=== PATIENT | female | born 1965 | race Caucasian/White ===

== ENCOUNTER → 2023-12-16 09:07 | Outpatient (REF) | payer OTHER, SELFPAY | LOC: WDC 09:07 | PROVIDERS: ATTENDING PHYSICIAN Obstetrics & Gynecology; FAMILY PHYSICIAN Student in an Organized Health Care Education/Training Program | DX: Z12.31 Encounter for screening mammogram for malignant neoplasm of breast (principal) | CPT/HCPCS: 77063; 77067 ==

== ENCOUNTER → 2024-04-16 15:18 | Outpatient (REF) | payer OTHER, SELFPAY | LOC: HWRAD 15:18 | PROVIDERS: ATTENDING PHYSICIAN Nurse Practitioner Family; FAMILY PHYSICIAN Student in an Organized Health Care Education/Training Program | DX: Z87.891 Personal history of nicotine dependence (principal) | CPT/HCPCS: 71271 ==

== ENCOUNTER → 2024-05-20 14:26 | Outpatient (REF) | payer OTHER, SELFPAY | LOC: HWRAD 14:26 | PROVIDERS: ATTENDING PHYSICIAN Internal Medicine Gastroenterology; FAMILY PHYSICIAN Student in an Organized Health Care Education/Training Program | DX: K76.0 Fatty (change of) liver, not elsewhere classified (principal) | CPT/HCPCS: 76700 ==

== ENCOUNTER → 2024-12-21 11:04 | Outpatient (REF) | payer OTHER, SELFPAY | LOC: WDC 11:04 | PROVIDERS: ATTENDING PHYSICIAN Obstetrics & Gynecology; FAMILY PHYSICIAN Student in an Organized Health Care Education/Training Program | DX: Z12.31 Encounter for screening mammogram for malignant neoplasm of breast (principal) | CPT/HCPCS: 77063; 77067 ==

== ENCOUNTER 2025-05-09 15:55 | Emergency (ER) | payer OTHER, SELFPAY ==
[2025-05-09 15:57] VITALS: BP 168/79
[2025-05-09 16:27] VITALS: BMI 39.2
--- NOTE | 2025-05-09 16:29 | ED.GENMED ---
History of Present Illness
General
Chief Complaint: Abdominal Symptoms
Source: patient
Exam Limitations: none
Time Seen by Provider: 05/09/25 16:08
History of Present Illness
History of Present Illness:
59yoF with a history of GERD, ANDRÉS, and depression presenting for evaluation of vomiting. Patient states she has been feeling unwell for the past couple weeks. She has been experiencing night sweats as well as pain in her right flank which is worse
at nighttime. She went to see her cook tortilla today because she thought her symptoms may be related to hormones. Her symptoms were not related to this and was advised to follow-up with her PCP. Patient woke up this morning with a headache which
was constant throughout the day today. She has been having intermittent headaches over the past several weeks. Her current pain is rated as a 6 out of 10 in severity. She has been vomiting throughout the day today and took an ODT Zofran without
any relief. She also reports some discomfort in her epigastric and chest region which she attributes to the vomiting.
Past History
Past History
ED Past Medical History: Asthma, GERD and Other (Hernia)
ED Past Surgical History: Orthopedic
Social History
Tobacco: Smoker
Alcohol: Occasional
Personal:
Living: with family
Employment: Employed
Family History
Family History: Other (Noncontributory)
Phy Exam
Physical Exam
Physical Exam:
Patient actively vomiting during exam
General Physical Exam
General Presentation: well appearing
General Skin: warm and dry
General Habitus: normal
General Mental: alert
ENT Exam
ENT Exam: normocephalic and other (No meningismus)
Eye Exam
Eye Exam: PERRL and conjunctiva normal
Cardiovascular Exam
Cardiovascular Exam: regular rate/rhythm, no edema and no murmur
Pulmonary Exam
Pulmonary Exam: lungs clear, no respiratory distress, no rales, no crackles, no rhonchi and no wheezing
Gastrointestinal Exam
Gastrointestinal Exam: soft, non distended and other (+Epigastric tenderness. Abdomen soft, non-distended. No rebound or guarding.)
Neurological Exam
Neurological Exam: alert
Jada Coma Scale
Eye Opening: Spontaneous
Verbal Response: Oriented
Motor Response: Obeys Commands
GCS Total Score: 15
Skin Exam
Skin Exam: normal color and warm/dry
Psychiatric Exam
Psychiatric Exam: normal mood/affect
Course
Orders/Labs/Results
Orders:
Orders
05/09/25 16:27
Electrocardiogram (*1) Urgent
Reason for Study: Chest Pain
CT Head W/o Iv Contrast Urgent
Comment:
Reason For Exam: acute headache
Chest/Abd/Pelvis w Contrast CT [CT Chest/abd/pel W Iv Cont] Urgent
Comment:
Reason For Exam: R flank pain
Cardiac Monitoring- Treatment ONCE
EKG- Treatment ONCE
0.9% Sodium Chloride 1000 ml [Nss] 1,000 ml IV BOLUS
Diphenhydramine [Benadryl] 25 mg IV NOW STA
Metoclopramide [Reglan] 10 mg IV NOW STA
05/09/25 16:46
COVID-19 Antigen Urgent
Source: Nasal Swab
Complete Blood Count/With Diff Urgent
Comprehensive Metabolic Panel Urgent
Lipase Urgent
Magnesium Urgent
Troponin I Urgent
Influenza A+B Rapid Molecular Urgent
BEN Source: Nasal Swab
Specimen Description:
05/09/25 18:47
Ketorolac [Toradol] 15 mg IV NOW STA
Abnormal Lab Results
05/09/25
16:46
Absolute Neuts (auto) 6.9 H 10^3/uL
(1.4-6.5)
Absolute Lymphs (auto) 0.9 L 10^3/uL
(1.2-3.4)
Neutrophils % 84.8 H %
(42.2-75.2)
Lymphocytes % 11.3 L %
(20.5-51.1)
Creatinine 0.5 L mg/dL
(0.6-1.0)
Glucose 124 H mg/dl
(70-99)
05/09/25 16:46
05/09/25 16:46
Vital Signs
Initial and Last Documented VS:
Initial Vital Signs
Temp Pulse Resp BP Pulse Ox
98.5 F 80 20 168/79 97
05/09/25 15:57 05/09/25 15:57 05/09/25 15:57 05/09/25 15:57 05/09/25 15:57
Last Documented Vital Signs
Temp Pulse Resp BP Pulse Ox
98.5 F 85 14 133/71 99
05/09/25 15:57 05/09/25 20:00 05/09/25 20:00 05/09/25 19:00 05/09/25 20:02
MDM/Problems Addressed
Differential Diagnosis Includes:
59yoF here with n/v and headache that began earlier today. Also having night sweats and R flank pain x several weeks. She is hypertensive with otherwise stable vital signs. Patient is actively vomiting during initial exam. Differential diagnosis
includes but is not limited to: Migraine, tension headache, gastroenteritis, kidney stone, ACS, dehydration, malignancy
Initial ED plan: Check abdominal labs, troponin/EKG, COVID/flu swab, CT head, and CT CAP. IV Reglan, Benadryl, and fluid bolus for symptoms.
*Pulse Oximetry
SaO2: 97
Oxygen Mode of Delivery: Room air
Patient hypoxic: no
*EKG
Interpreted by ED Provider?: Yes
EKG Intrepretation Date: 05/09/25
Heart Rate: 74
Rate: normal
Rhythm: sinus
[place]: normal axis
Interval: normal interval
QRS Pattern: normal QRS
Ischemia: no ischemia
*Critical Care Note
Total Time (30-74mins, 75-104mins- exclusive of procedures): Not Applicable
Update Note
Update Note:
Labs overall unremarkable including normal white count, renal function, LFTs. EKG shows normal sinus rhythm without ischemic changes and troponin normal. Head CT normal. CT CAP shows mild wall thickening of distal esophagus. Patient does have
Mae's esophagus and receives endoscopies regularly. She believes she is due for an EGD but is unsure. No other significant findings on imaging. Patient feeling significantly improved on reassessment and she is able to tolerate p.o. challenge.
Patient stable for discharge. Prescription provided for Reglan and supportive care discussed. She was advised to follow-up with her PCP and GI. ED return precautions reviewed and patient discharged stable condition.
ED Attending Note
-
Portions of this chart may have been created with voice recognition software.� Occasional wrong word or��sound alike� substitutions may have occurred due to the inherent limitations of voice recognition software.
Discharge Plan
Departure
Patient Disposition: Home (Routine Discharge)
Date of Disposition: 05/09/25
Time of Disposition: 19:53
Patient with high blood pressure during this ER visit?: Yes
Discharge Problem:
Nausea and vomiting
Instructions: Nausea and Vomiting, Adult (DC)
Prescriptions:
New
metoclopramide HCl [Reglan] 10 mg tablet
10 mg PO Q8HPRN PRN (Reason: nausea and vomiting) Qty: 20 0RF
No Action
fluticasone propion-salmeterol [Wixela Inhub] 100-50 mcg/dose Blister With Device
1 inh INHALATION DAILY
albuterol sulfate 90 mcg/actuation HFA aerosol inhaler
2 puff INHALATION Q4H PRN (Reason: SOB/WHEEZING)
bupropion HCl 150 mg tablet sustained-release 12 hr
150 mg PO BID
clobetasol 0.05 % ointment
1 applic TOPICAL BID PRN (Reason: irritation)
fluticasone propionate 50 mcg/actuation spray,suspension
1 spray INTRANASAL DAILY PRN (Reason: seasonal allergies)
gabapentin 300 mg Capsule
300 mg PO HS Qty: 30 2RF
verapamil 40 mg Tablet
40 mg PO TID Qty: 90 2RF
magnesium gluconate [Mag-G] 27 mg magnesium (500 mg) tablet
27 mg PO DAILY Qty: 30 2RF
riboflavin (vitamin B2) 50 mg tablet
50 mg PO DAILY Qty: 30 2RF
sumatriptan succinate 50 mg Tablet
50 mg PO Q2H Qty: 30 0RF
Rx Instructions:
Not more than 2 doses a day and not more than 2 days a week as needed for her
Referrals:
Lovely Bates MD [Family Provider, Internal Medicine]
Stand Alone Forms: Return to Work
Activity Restrictions/Additional Instructions:
Take Reglan as needed for nausea. Do not take this at the same time as Zofran. Drink plenty of fluids and advance slowly to a bland diet (bananas, rice, applesauce, toast).
Please follow-up with your family doctor on Monday. You should also follow-up with your furniture finisher helper to see when your next endoscopy is due.
Return to the ER with any new or worsening symptoms or if you are unable to keep down liquids.
Interventions
Interventions:
*Risk Screen - Suicide Last Done: 05/09/25 17:00
*General Assessment Last Done: 05/09/25 15:57
*Neglect/Abuse Screening Last Done: 05/09/25 17:00
*ED- Fall Risk Assessment Last Done: 05/09/25 20:12
*ED COVID-19 Vaccine History Last Done: 05/09/25 17:00
*ED Influenza Vaccine History Last Done: 05/09/25 17:00
*Nursing Disposition Last Done: 05/09/25 20:12
JT-Hmgkbz-Krlhbkqlvo Assessment Last Done: 05/09/25 17:00
Discharge Date and Time
Print Language: [place] LUCIAN
[2025-05-09] MEDS: NSS 1000 IV (16:51)
[2025-05-09] MEDS: BENADRYL 25 MG IV (16:51)
[2025-05-09] MEDS: REGLAN 10 MG IV (16:51)
[2025-05-09 16:57] LABS: Hematocrit 41.9 % (37.0-47.0); Hemoglobin 14.4 g/dL (12.0-16.0); Mean Corp Hgb Conc. 34.4 g/dL (33.0-37.0); Mean Corpuscular Volume 90.3 fL (81.0-99.0); Nucleated Red Blood Cells % 0 %; Platelet Count 275 10^3/uL (130-400); Red Cell Dist. Width 13.0 % (11.5-14.5)
[2025-05-09 17:00] VITALS: BP 141/80
[2025-05-09 17:13] LABS: ALT (SGPT) 31 U/L (0-35); AST (SGOT) 23 U/L (14-36); Albumin 4.6 g/dl (3.5-5.0); Alkaline Phosphatase 65 U/L (38-126); Blood Urea Nitrogen 12 mg/dl (7-17); Calcium 9.5 mg/dl (8.4-10.2); Carbon Dioxide 27 mmol/L (22-30); Chloride 105 mmol/L (98-107); Glucose 124 mg/dl (70-99); Lipase 176 U/L (23-300); Magnesium 2.0 mg/dl (1.6-2.3); Potassium 4.0 mmol/L (3.5-5.1); Sodium 137 mmol/L (135-145); Total Protein 7.2 g/dl (6.3-8.2); eGFR > 60.00
[2025-05-09 17:18] LABS: COVID-19 Antigen Negative (Negative); Troponin I < 0.012 ng/ml
[2025-05-09 18:22] VITALS: BP 137/93
[2025-05-09 19:00] VITALS: BP 133/71
--- NOTE | 2025-05-09 19:00 | EDRN ---
Report received, introduced myself to patient and medicated for pain
[2025-05-09] MEDS: TORADOL 15 MG IV (19:09)
== END 2025-05-09 20:13 | disposition home or self-care (01) ==
LOC: EMR 15:55
PROVIDERS: Physician Assistant; EMERGENCY PHYSICIAN Emergency Medicine; FAMILY PHYSICIAN Student in an Organized Health Care Education/Training Program
DX: R11.2 Nausea with vomiting, unspecified (principal); K21.9 Gastro-esophageal reflux disease without esophagitis; F32.A Depression, unspecified; G47.33 Obstructive sleep apnea (adult) (pediatric); R10.9 Unspecified abdominal pain; J45.909 Unspecified asthma, uncomplicated; F17.200 Nicotine dependence, unspecified, uncomplicated; Z98.1 Arthrodesis status
CPT/HCPCS: 99284; 96374; 96375; 96361; 70450; 71260; 74177; 80053; 83690; 83735; 84484; 85025; 87502; 87811; 93005; Q9967